=== PATIENT | male | born 1965 | race Caucasian/White ===

== ENCOUNTER 2016-12-11 07:30 | Emergency (ER) | payer OTHER ==
[2016-12-11 07:36] VITALS: BP 127/78; PULSE 57; TEMP 97.4; BMI 30.7
--- NOTE | 2016-12-11 07:51 | PDOC ---
History of Present Illness - General Chief Complaint: Pain, Acute Stated Complaint: INFECTED RIGHT INDEX FINGER Time Seen by Provider: 12/11/16 07:32 History Source: Patient Exam Limitations: No Limitations - History of Present Illness Initial Comments: 50 yo M presents with R index finger pain. He states he cannot recall any injury , however, he was recently sanding a piece of wood and states that perhaps there may have been a splinter. However, now for the past few days his finger has been getting more painful and red. Yesterday he attempted to play his guitar , and touching the pick was extremely painful. No fever. +Localized redness of the finger, no streaking up the hand or arm. He presents for evaluation because he has a flight to [place] this afternoon. Past History - Past Medical History Allergies/Adverse Reactions: Allergies Allergy/AdvReac Type Severity Reaction Status Date / Time No Known Allergies Allergy Verified 12/11/16 07:31 Home Medications: Ambulatory Orders Clindamycin [Cleocin -] 450 mg PO Q8H #63 capsule 12/11/16 Other medical history: DENIES - Immunization History Immunization Up to Date: Yes - Psycho/Social/Smoking Cessation Hx Anxiety: No Suicidal Ideation: No Smoking History: Never smoked Have you smoked in the past 12 months: No Information on smoking cessation initiated: No Hx Alcohol Use: Yes (SOCIAL) Drug/Substance Use Hx: No Substance Use Type: None Review of Systems - Review of Systems Able to Perform ROS?: Yes Comments:: GENERAL/CONSTITUTIONAL: No fever or chills. No weakness. MUSCULOSKELETAL: No joint or muscle swelling or pain. No neck or back pain. SKIN: No rash NEUROLOGIC: No headache, vertigo, loss of consciousness, or change in strength/ sensation. *Physical Exam - Vital Signs Last Vital Signs Temp Pulse Resp BP Pulse Ox 97.4 F L 57 L 16 127/78 97 12/11/16 07:32 12/11/16 07:32 12/11/16 07:32 12/11/16 07:32 12/11/16 07:32 - Physical Exam Comments: GENERAL: Awake, alert, and fully oriented, in no acute distress HEAD: No signs of trauma EXTREMITIES: R index finger with erythema, induration, and fluctuant area over the pad of the finger. Remainder of extremities with normal range of motion, no edema. No clubbing or cyanosis. No cords, erythema, or tenderness NEUROLOGICAL: Cranial nerves II through XII grossly intact. Normal speech, normal gait. Motor and sensation intact. SKIN: Warm, Dry, normal turgor, no rashes or lesions noted. Procedures - Incision and Drainage I&D Site: Right: Other (index finger) Anesthesia: 1% Lidocaine Volume(ml): 1 (digital block) Blade Size: 15 Attempts: 2 Complications: none Dressing: Yes Progress: 12/11/16 08:09 Two fluctuant areas were incised, but only expression of blood, no purulent material. Patient tolerated well. No complications. Minimal bleeding. Wound dressed with sterile gauze. Medical Decision Making - Medical Decision Making 12/11/16 08:11 Suspected felon vs paronychia (patient with swelling on the pad of the finger extending around to the nail- along the side abutting the 3rd finger). There were two very small fluctuant areas, however, in light of travel later today, opted to attempt I&D rather than risk worsening symptoms while he is out of town , necessitating another ED visit. Two small incisions were made, no purulent material was expressed. Will start on clinda. Encouraged warm salt water soaks. *DC/Admit/Observation/Transfer Diagnosis at time of Disposition: Cellulitis of finger of right hand - Discharge Dispostion Disposition: HOME Condition at time of disposition: Stable Admit: No - Prescriptions Prescriptions: Clindamycin [Cleocin -] 450 mg PO Q8H #63 capsule - Patient Instructions Printed Discharge Instructions: DI for Cellulitis -- Adult Additional Instructions: Take clindamycin as directed 3 times per day for next 7 days. Warm salt water soaks twice per day, then dress finger with dry gauze and tape. Return to the ER for severe pain, fever, swelling, or redness tracking up your arm.
[2016-12-11] MEDS ORDERED: CLINDAMYCIN HCL 300 MG CAPSULE PO ONE (08:08)
[2016-12-11] MEDS ORDERED: CLINDAMYCIN HCL 150 MG CAPSULE (FP) ONE (08:16)
== END 2016-12-11 08:20 | disposition home or self-care (01) ==
LOC: FER 07:30
PROC: 0H9FXZZ Drainage of Right Hand Skin, External Approach (ICD-10-PCS; principal; 2016-12-11)
DX: L03.011 Cellulitis of right finger (principal)
CPT/HCPCS: 99281-25